=== PATIENT | female | born 1955 | race Native Hawaiian/Other Pacific Islander ===

== ENCOUNTER → 2016-09-03 | Outpatient (CLI) | payer BC ==
--- NOTE | 2016-09-03 22:29 | MR ---
EXAMINATION TYPE: MR brain wo/w con DATE OF EXAM: 09/03/2016 5:02 PM COMPARISON: Correlation CT 08/08/2015 HISTORY: 61-year-old female with chronic left hemifacial spasm TECHNIQUE: Multiplanar, multisequence images of the brain and brainstem were acquired before and aft er administration of 12 mL IV MultiHance. Diffusion weighted imaging is performed. FINDINGS: No evidence for acute infarction, hemorrhage, mass, mass effect, midline shift, herniation, effacemen t of basal cisterns, or extra-axial fluid collection. The ventricles and sulci are age-appropriate. There is mild cerebral cortical volume loss. Major intracranial flow voids are intact. T2/FLAIR weighted sequences show a few bright white matter foci in the subcortical, deep, and periven tricular white matter of both cerebral hemispheres, numbering approximately 5, largest focus measurin g 6 mm in the subcortical region of the posterior right frontal lobe, axial image 21. Midline structures demonstrate normal morphology. The craniocervical junction is normal. Post contrast images demonstrate no evidence of pathologic enhancement. Dural venous sinuses are pat ent. Trace mucosal thickening anterior ethmoid air cells. Globes are intact. IMPRESSION: 1. No acute intracranial abnormality seen. No abnormal enhancing lesions. 2. Minimal burden of bright white matter change, nonspecific, most likely representing changes of chr onic small vessel ischemic disease.
== END | disposition home or self-care (01) ==
LOC: RADMRIMAIN 15:35
PROVIDERS: ATTEND Psychiatry & Neurology Neurology
DX: R90.82 White matter disease, unspecified (principal); G51.3 Clonic hemifacial spasm
CPT/HCPCS: 82565; 70553; A9577

== ENCOUNTER → 2016-09-23 | Outpatient (CLI) | payer BC ==
[2016-09-23 16:39] LABS: CH 32.6; CHCM 34.4; HCT 40.1 % (34.0-46.0); HDW 2.64; HGB 13.6 gm/dL (11.4-16.0); MCH 32.4 pg (25.0-35.0); MCV 95.1 fL (80.0-100.0); Mean Platelet Volume 6.9; RBC 4.21 m/uL (3.80-5.40); RDW 12.8 % (11.5-15.5); WBC 6.7 k/uL (3.8-10.6)
[2016-09-23 16:55] LABS: Anion Gap 11 mmol/L; Blood Urea Nitrogen 17 mg/dL (7-17); Calcium 9.5 mg/dL (8.4-10.2); Carbon Dioxide 26 mmol/L (22-30); Chloride 103 mmol/L (98-107); Glucose 94 mg/dL (74-99); Non-African American GFR(MDRD) >60 (>60 ml/min/1.73 sqM); Potassium 4.1 mmol/L (3.5-5.1); Sodium 140 mmol/L (137-145)
== END ==
LOC: LABWHC1 16:16
PROVIDERS: ATTEND Psychiatry & Neurology Neurology
DX: Z51.81 Encounter for therapeutic drug level monitoring (principal); Z79.899 Other long term (current) drug therapy
CPT/HCPCS: 36415; 80048; 85027

== ENCOUNTER → 2018-01-14 | Outpatient (CLI) | payer BC | LOC: LABWHC1 15:26 | PROVIDERS: ATTEND Family Medicine | DX: E21.3 Hyperparathyroidism, unspecified (principal) | CPT/HCPCS: 36415; 83970 ==

== ENCOUNTER → 2018-06-04 | Outpatient (CLI) | payer BC ==
[~2018-06-04] MED LIST: SODIUM CHLORIDE 0.9% 500 ML 500 ML in EMPTY BAG 1 BAG IV PRN; ZOLEDRONIC ACID 5 MG in SODIUM CHLORIDE 0.9% 100 ML IV NR
[2018-06-04 14:18] VITALS: BP 137/66; PULSE 70; RESP 16; TEMP 97.8
== END ==
LOC: PROCWHC3 13:33
PROVIDERS: ATTEND Internal Medicine
DX: M81.0 Age-related osteoporosis without current pathological fracture (principal)
CPT/HCPCS: 96365; J3489

== ENCOUNTER → 2018-06-18 | Outpatient (CLI) | payer BC ==
[2018-06-18 17:57] LABS: LDL Cholesterol,Calculated 122.8 mg/dL (0.0-131.0); VLDL Calculation 18.2 mg/dL (5.00-40.00)
== END ==
LOC: LABWHC1 10:22
PROVIDERS: ATTEND Internal Medicine Interventional Cardiology
DX: E78.2 Mixed hyperlipidemia (principal)
CPT/HCPCS: 36415; 80061; 84450; 84460

== ENCOUNTER → 2018-06-18 | Outpatient (CLI) | payer BC ==
--- NOTE | 2018-06-22 08:40 | MM ---
Reason for exam: screening (asymptomatic). Last mammogram was performed 3 years and 6 months ago. History: Patient is postmenopausal. Family history of breast cancer in maternal aunt. Physical Findings: A clinical breast exam by your physician is recommended on an annual basis and results should be correlated with mammographic findings. MG 3D Screening Mammo W/Cad Bilateral CC and MLO view(s) were taken. Prior study comparison: December 05, 2014, bilateral MG screening mammo w CAD. December 10, 2011, CAD bilateral diagnostic mammogram. Focal asymmetry left middle CC view. This finding is changed when compared with previous exams. ASSESSMENT: Incomplete: need additional imaging evaluation, BI-RAD 0 RECOMMENDATION: Special view mammogram of the left breast. If lesion persists on supplemental views, image directed ultrasound is recommended. [facility] will attempt to contact patient to return for supplemental views and ultrasound if indicated.
== END ==
LOC: RADMAMWWP 10:25
PROVIDERS: ATTEND Family Medicine
DX: Z12.31 Encounter for screening mammogram for malignant neoplasm of breast (principal)
CPT/HCPCS: 77063; 77067

== ENCOUNTER → 2018-07-08 | Outpatient (CLI) | payer BC ==
--- NOTE | 2018-07-08 11:48 | MM ---
Reason for exam: additional evaluation requested from abnormal screening. Last mammogram was performed 1 month ago. History: Patient is postmenopausal. Family history of breast cancer in maternal aunt. Physical Findings: Nurse Summary: yellow bruise, patient states fell 2 weeks ago, 1.5cm palpable lump center of bruise upper outer chest (nurse mj). MG 3D Work Up W/Cad LT Spot compression CC and ML view(s) were taken of the left breast. Prior study comparison: June 18, 2018, bilateral MG 3d screening mammo w/cad. December 05, 2014, bilateral MG screening mammo w CAD. The breast tissue is heterogeneously dense. This may lower the sensitivity of mammography. There is a left upper outer quadrant mass 4cm from nipple that persists on additional views. Ultrasound will be performed. These results were verbally communicated with the patient and result sheet given to the patient on 07/08/18. ASSESSMENT: Incomplete: need additional imaging evaluation, BI-RAD 0 RECOMMENDATION: Ultrasound of the left breast. (upper outer quadrant)
--- NOTE | 2018-07-08 11:51 | USB ---
Reason for exam: additional evaluation requested from abnormal screening. History: Patient is postmenopausal. Family history of breast cancer in maternal aunt. US Breast Workup Limited LT Left limited breast ultrasound including focal area of concern, retroareolar and axilla demonstrates a 3.2 x 0.8 x 3.7cm oval, mixed lesion at 12 o'clock appears as hematoma, short term re-assessment recommended to ensure resolution and a 0.4 x 0.3 x 0.4cm oval, hypoechoic lesion at 2 o'clock although some increase through transmission, well defined posterior wall and nearby anechoic, this will be re-assessed in 3 months. These results were verbally communicated with the patient and result sheet given to the patient on 07/08/18. ASSESSMENT: Probably benign, BI-RAD 3 RECOMMENDATION: Ultrasound of the left breast in 3 months.
== END | disposition home or self-care (01) ==
LOC: RADMAMWWP 10:22
PROVIDERS: ATTEND Family Medicine
DX: R92.8 Other abnormal and inconclusive findings on diagnostic imaging of breast (principal)
CPT/HCPCS: 77061; 77065

== ENCOUNTER → 2019-04-08 | Outpatient (CLI) | payer BC ==
--- NOTE | 2019-04-11 08:41 | USB ---
Reason for exam: clinical finding. History: Patient is postmenopausal. Family history of breast cancer in maternal aunt. Indicated problem(s): pain in the left breast. Physical Findings: Nurse did not find any significant physical abnormalities on exam. US Breast LT Left complete breast ultrasound includes all four quadrants, the retroareolar region and axilla. Finding demonstrates no cystic or solid lesion seen. A 7mm and 6mm oval, lymph nodes at the axilla tail. Resolved hematoma. These results were verbally communicated with the patient and result sheet given to the patient on 04/08/19. ASSESSMENT: Negative, BI-RAD 1 RECOMMENDATION: Return to routine screening mammogram schedule for both breasts. Back on schedule for June 2019.
== END | disposition home or self-care (01) ==
LOC: RADUSWWP 14:31
PROVIDERS: ATTEND Family Medicine
DX: R92.8 Other abnormal and inconclusive findings on diagnostic imaging of breast (principal)

== ENCOUNTER 2019-05-26 11:22 | Emergency (ER) | payer BC, OTHER ==
[2019-05-26 11:55] VITALS: TEMP 97.6
[2019-05-26] MEDS ORDERED: SODIUM CHLORIDE 0.9% 500 ML 500 ML IV ONE (14:42)
--- NOTE | 2019-05-26 15:00 | CT ---
EXAMINATION TYPE: CT brain gail moser DATE OF EXAM: 05/26/2019 COMPARISON: 08/08/2015 HISTORY: fall CT DLP: 1276.[address] of the brain was performed. The ventricles, basal cisterns and sulci overlying the cerebral convexities demonstrate mild enlargem ent. There is no evidence for intracranial hemorrhage or sulcal effacement. There is decreased attenuatio n about the periventricular white matter and deep white matter of both cerebral hemispheres, compatib le with chronic small vessel ischemia. No mass effects are seen. If symptoms persist consider MRI. Osseous calvarium is intact. IMPRESSION: 1. Age related atrophic and chronic small vessel ischemic change without acute intracranial process seen at this time. CT Cervical Spine: Unenhanced CT of the cervical spine was performed with bone and soft tissue window settings submitted . Coronal and sagittal reconstruction is obtained. There is normal alignment and prevertebral soft tissues. No evidence for acute cervical fracture . Scattered degenerative disc disease and spondylosis. Biapical scarring. IMPRESSION: 1. No evidence for acute fracture or subluxation of the cervical spine.
--- NOTE | 2019-05-26 15:06 | CT ---
EXAMINATION TYPE: CT abdomen pelvis w con DATE OF EXAM: 05/26/2019 COMPARISON: none HISTORY: Right flank pain post fall. CT DLP: 798.3 mGycm CONTRAST: CT scan of the abdomen and pelvis is performed without Oral Contrast and with IV Contrast, patient in jected with 100 mL of Isovue 300. FINDINGS: LUNG BASES-: No visible nodule. No infiltrate. LIVER/GB: No calcified gallstones. No space occupying hepatic lesion. Biliary tree is of normal ca liber. PANCREAS: No inflammation. No distinct mass. SPLEEN: No splenic enlargement. No lesion seen. ADRENALS: No nodule. No thickening. KIDNEYS/BLADDER: No hydronephrosis. No nephrolithiasis. No distinct renal mass. Urinary bladder g rossly unremarkable. BOWEL: Normal appendix. Normal bowel caliber. No inflammation. GENITAL ORGANS: No gross abnormality. LYMPH NODES: No greater than 1cm abdominal or pelvic lymph nodes are appreciated. AORTA: No significant abnormality. OSSEOUS STRUCTURES: No significant abnormality is seen. OTHER: No significant additional abnormality is seen. IMPRESSION: 1. No acute process identified at this time.
[2019-05-26 15:20] LABS: Basophils % (A) 0 %; Eosinophils # (A) 0.2 k/uL (0-0.7); Eosinophils % (A) 3 %; HCT 37.8 % (34.0-46.0); HGB 12.6 gm/dL (11.4-16.0); Lymphocytes # (A) 1.7 k/uL (1.0-4.8); Lymphocytes % (A) 29 %; MCH 32.8 pg (25.0-35.0); MCHC 33.4 g/dL (31.0-37.0); MCV 98.3 fL (80.0-100.0); Mean Platelet Volume 6.9; Monocytes # (A) 0.3 k/uL (0-1.0); Monocytes % (A) 4 %; Neutrophils # (A) 3.6 k/uL (1.3-7.7); Neutrophils % (A) 61 %; Platelet Count 200 k/uL (150-450); RBC 3.85 m/uL (3.80-5.40); RDW 12.9 % (11.5-15.5); WBC 5.9 k/uL (3.8-10.6)
[2019-05-26 15:30] LABS: ALT 21 U/L (4-34); AST 33 U/L (14-36); African American GFR (CKD) >90 (>60 ml/min/1.73 sqM); Albumin 4.1 g/dL (3.5-5.0); Alkaline Phosphatase 89 U/L (38-126); Anion Gap 5 mmol/L; Blood Urea Nitrogen 14 mg/dL (7-17); Calcium 8.8 mg/dL (8.4-10.2); Carbon Dioxide 27 mmol/L (22-30); Chloride 106 mmol/L (98-107); Glucose 84 mg/dL (74-99); Non-African American GFR(CKD) >90 (>60 ml/min/1.73 sqM); Sodium 138 mmol/L (137-145); Total Bilirubin 0.7 mg/dL (0.2-1.3); Total Protein 7.1 g/dL (6.3-8.2)
--- NOTE | 2019-05-26 15:37 | XR ---
EXAMINATION TYPE: XR chest 2V DATE OF EXAM: 05/26/2019 COMPARISON: NONE HISTORY: Shortness of breath TECHNIQUE: Frontal and lateral views of the chest are obtained. FINDINGS: Scattered senescent parenchymal changes noted. Hyperinflation compatible with COPD. No evidence for infiltrate. No evidence for atelectasis. Heart size is stable. Mediastinal structures are stable and grossly unremarkable. No evidence for hilar prominence. Degenerative changes dorsal spine. IMPRESSION: 1. No evidence for acute pulmonary disease.
--- NOTE | 2019-05-26 15:38 | XR ---
EXAMINATION TYPE: XR shoulder complete RT DATE OF EXAM: 05/26/2019 CLINICAL HISTORY: pain TECHNIQUE: Three views of the right shoulder are obtained. COMPARISON: None FINDINGS: There is no acute fracture/dislocation evident. The acromioclavicular and glenohumeral maribell int spaces appear within normal limits. The visualized ribs are intact and unremarkable. IMPRESSION: 1. There is no acute fracture or dislocation. ICD 10 NO FRACTURE, INITIAL EVALUATION
--- NOTE | 2019-05-26 15:38 | XR ---
EXAMINATION TYPE: XR Hip Complete RT DATE OF EXAM: 05/26/2019 CLINICAL HISTORY: pain TECHNIQUE: AP and frogleg views of the right hip are obtained. COMPARISON: None. FINDINGS: There is no acute fracture/dislocation evident. The joint space appears within normal li mits. Calcification adjacent to the greater trochanter may reflect calcific tendinopathy. IMPRESSION: 1. There is no acute fracture or dislocation. ICD 10 NO FRACTURE, INITIAL EVALUATION
--- NOTE | 2019-05-26 15:53 | ED ---
Fall HPI - General Chief Complaint: Fall Stated Complaint: [facility] - fall, head injury Time Seen by Provider: 05/26/19 12:47 Source: patient Mode of arrival: ambulatory - History of Present Illness Initial Comments: 64-year-old female withPast medical history presenting today for chief complaint of right shoulder right hip and flank pain after fall down 10 steps. Patient states she lost her balance falling on her right side down approximately 10 steps she states she slid. Patient states she did hit her head but states pulsatile most of the right shoulder. Patient states she has slight right-sided neck pain. Patient denies any headache nausea vomiting visual changes dizzine ss. Patient has a chest pain shortness of breath or pain with deep inspiration. Patient states that she is able to ambulate and weight-bear denies any knee or ankle pain. Patient denies any use of anticoagulation therapy and denies any loss of consciousness. Patient denies any weakness of the upper or lower extremities obvious deformity of the shoulder numbness tingling loss sensation of the upper or lower extremities, speech changes or diplopia or any other complaints at this time. Patient states that the fall initially occurred at 10 AM however she did not start to feel pain until hours later and then decided to present to the emergency department for further evaluation. Patient states the fall did occur at work. - Related Data Home Medications Medication Instructions Recorded Confirmed Calcium Carbonate [Calcium] 600 mg PO DAILY 06/04/18 06/04/18 Ergocalciferol (Vitamin D2) 50,000 unit PO WEEKLY 06/04/18 06/04/18 [Vitamin D2] Allergies Allergy/AdvReac Type Severity Reaction Status Date / Time No Known Allergies Allergy Verified 06/04/18 14:12 Review of Systems ROS Statement: Those systems with pertinent positive or pertinent negative responses have been documented in the HPI. ROS Other: All systems not noted in ROS Statement are negative. Past Medical History Past Medical History: No Reported History History of Any Multi-Drug Resistant Organisms: None Reported Past Surgical History: Section Past Psychological History: No Psychological Hx Reported Smoking Status: Former smoker General Exam - General Exam Comments Initial Comments: General: The patient is awake and alert, in no distress, and does not appear acutely ill. Eye: upils are equal, round and reactive to light, extra-ocular movements are intact. No nystagmus. There is normal conjunctiva bilaterally. No signs of icterus. Ears, nose, mouth and throat: There are moist mucous membranes and no oral lesions. Neck: The neck is supple, there is no tenderness or JVD. Cardiovascular: There is a regular rate and rhythm. No murmur, rub or gallop is appreciated. Respiratory: Lungs are clear to auscultation, respirations are non-labored, breath sounds are equal. No wheezes, stridor, rales, or rhonchi. Gastrointestinal: Soft, non-distended, non-tender abdomen without masses or organomegaly noted. There is no rebound or guarding present Musculoskeletal: Upon inspection of the upper extremities there is contusion of the right anterior shoulder. No gross deformity. Patient is able to fully range the shoulders bilaterally with complaints of mild tenderness of the right shoulder with overhead range of motion. Patient is no tenderness to patient and scapula. No point localized pain of the elbows wrists bilaterally or left shoulder. Patient has pain over the bony prominence of the right hip no evidence of bruising lacerations or abrasions. Normal ROM of the hips b/l there is no shortening, rotation or pain with log roll. Strength 5/5 of the UE and LE b/l. No evidence of a strep patient is able to make the okay fingers crossed thumbs-up and oppose all digits and thumb compartment circumflex soft and compressible of the upper and lower extremity. Sensation intact fo the UE and LE b/l. Radial and DP Pulses equal bilaterally 2+. Neurological: A&O x 3. CN II-XII intact, There are no obvious motor or sensory deficits. Coordination appears grossly intact. Speech is normal. Skin: Skin is warm and dry and no rashes or lesions are noted. Psychiatric: Cooperative, appropriate mood & affect, normal judgment. Limitations: no limitations Course Vital Signs 05/26/19 05/26/19 11:52 16:54 Temperature 97.6 F Pulse Rate 81 79 Respiratory 20 16 Rate Blood Pressure 134/85 130/66 O2 Sat by Pulse 98 99 Oximetry Medical Decision Making - Medical Decision Making Imaging studies negative for acute osseous process. No signs of intracranial hemorrhage patient does not have any midline pain or pain with range of motion of the cervical spine once the collar was removed. Patient mild right-sided paravertebral tenderness with palpation. Patient is able to weight-bear on the right hip. No difficulty. No limitations in range of motion of the right shoulder no scapular pain patient is neurovascularly intact. Patient does not use antiquated radiation therapy she appears well with complaints of generalized soreness there is no evidence of intra-abdominal process nor pneumothorax. At this time I do feel patient is stable for discharge with outpatient primary care follow-up patient is agreeable to this care plan and was discharged with a starter pack for 10 #3 proper use was discussed I discussed the case with any provider Dr. Jacobsen who was agreeable to are plan and discharge. - Lab Data Result diagrams: 05/26/19 15:09 05/26/19 15:09 Lab Results 05/26/19 05/26/19 Range/Units 15:09 15:09 WBC 5.9 (3.8-10.6) k/uL RBC 3.85 (3.80-5.40) m/uL Hgb 12.6 (11.4-16.0) gm/dL Hct 37.8 (34.0-46.0) % MCV 98.3 (80.0-100.0) fL MCH 32.8 (25.0-35.0) pg MCHC 33.4 (31.0-37.0) g/dL RDW 12.9 (11.5-15.5) % Plt Count 200 (150-450) k/uL Neutrophils % 61 % Lymphocytes % 29 % Monocytes % 4 % Eosinophils % 3 % Basophils % 0 % Neutrophils # 3.6 (1.3-7.7) k/uL Lymphocytes # 1.7 (1.0-4.8) k/uL Monocytes # 0.3 (0-1.0) k/uL Eosinophils # 0.2 (0-0.7) k/uL Basophils # 0.0 (0-0.2) k/uL Sodium 138 (137-145) mmol/L Potassium 4.0 (3.5-5.1) mmol/L Chloride 106 (98-107) mmol/L Carbon Dioxide 27 (22-30) mmol/L Anion Gap 5 mmol/L BUN 14 (7-17) mg/dL Creatinine 0.59 (0.52-1.04) mg/dL Est GFR (CKD-EPI)AfAm >90 (>60 ml/min/1.73 sqM) Est GFR (CKD-EPI)NonAf >90 (>60 ml/min/1.73 sqM) Glucose 84 (74-99) mg/dL Calcium 8.8 (8.4-10.2) mg/dL Total Bilirubin 0.7 (0.2-1.3) mg/dL AST 33 (14-36) U/L ALT 21 (4-34) U/L Alkaline Phosphatase 89 (38-126) U/L Total Protein 7.1 (6.3-8.2) g/dL Albumin 4.1 (3.5-5.0) g/dL Disposition Clinical Impression: Fall, Right hip pain, Right shoulder pain, Head injury, Neck strain, Flank pain, Contusion Disposition: HOME SELF-CARE Condition: Good Instructions (If sedation given, give patient instructions): Fall Prevention for Older Adults (ED), R.I.C.E. Treatment (ED) Additional Instructions: Please use medication as discussed. Please follow-up with family doctor in the next 2 days. Please return to emergency room if the symptoms increase or worsen or for any other concerns. Is patient prescribed a controlled substance at d/c from ED?: No Referrals: Yuri Brown DO [Primary Care Provider] - 1-2 days Time of Disposition: 16:20
[2019-05-26] MEDS ORDERED: ACET/COD 300 MG/30 MG STARTER PACK 6 TAB BTL PO STA (16:28)
[2019-05-26 16:55] VITALS: BP 130/66; PULSE 79; RESP 16
== END 2019-05-26 16:56 | disposition home or self-care (01) ==
LOC: EC 11:22
DX: S16.1XXA Strain of muscle, fascia and tendon at neck level, initial encounter (principal); S40.011A Contusion of right shoulder, initial encounter; S09.90XA Unspecified injury of head, initial encounter; R10.9 Unspecified abdominal pain; M25.551 Pain in right hip; Z87.891 Personal history of nicotine dependence; W10.9XXA Fall (on) (from) unspecified stairs and steps, initial encounter; Y92.69 Other specified industrial and construction area as the place of occurrence of the external cause; Y99.0 Civilian activity done for income or pay
CPT/HCPCS: 99284; 36415; 80053; 85025; 73502; 73030; 71046; 72125; 70450; 74177; L0120; Q9967

== ENCOUNTER → 2021-01-10 | Outpatient (CLI) | payer MEDICARE ==
[2021-01-10 11:31] VITALS: BP 133/78; PULSE 92; RESP 16; TEMP 98.3
== END ==
LOC: PROCWHC3 11:21
PROVIDERS: ATTEND Internal Medicine
DX: M81.0 Age-related osteoporosis without current pathological fracture (principal); Z87.891 Personal history of nicotine dependence
CPT/HCPCS: 96365; J3489

== ENCOUNTER → 2021-01-22 | Outpatient (CLI) | payer MEDICARE ==
[2021-01-22 14:10] VITALS: BP 126/78; PULSE 80; RESP 12; TEMP 98.1
--- NOTE | 2021-01-22 15:20 | P.HPOB ---
History of Present Illness H&P Date: 01/22/21 Chief Complaint: The patient is here for her routine gynecologic exam. This is a 65-year-old 001 with an LMP of approximately 2010. It has been more than 7 years since her last pelvic exam. She states the last time she had a pelvic exam it was very uncomfortable and because of this she did not have another one for many years. She has not been sexually active for several years because of her 's erectile dysfunction. He has been treated for this without much success. When he is able to obtain a slight erection, they have not been able to maintain with sexual intercourse. There has been vaginal dryness when they had attempted sexual intercourse. She also finds that her sex drive is less than in the past. She states she is able to achieve orgasm with self-stimulation, but it is not as satisfying as orgasms in the past. She also states that in the last 2 weeks she has had occasional left vaginal wall discomfort. It reminds her of an occasional discomfort that she used to have with sexual intercourse if her partner was very large. This has only been occasional and not very bothersome and has occurred intermittently over the past 2 weeks. These pains have not been associated with sex since she has not been sexually active for several years and she states she has not put anything into the vagina. She denies any postmenopausal bleeding. She is otherwise without complaints. Review of Systems The patient's weight has been stable over the last year. She denies respiratory, cardiac, or G.I. problems. Past Medical History Past Medical History: Hyperlipidemia Additional Past Medical History / Comment(s): Osteoporosis. 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 History of Any Multi-Drug Resistant Organisms: None Reported Past Surgical History: Section Additional Past Surgical History / Comment(s): section 2. Colonoscopy approximately 2010. Past Anesthesia/Blood Transfusion Reactions: No Reported Reaction Past Psychological History: Anxiety Smoking Status: Former smoker Past Alcohol Use History: Occasional (One per month) Additional Past Alcohol Use History / Comment(s): She smoked socially in the past but quit in her 40s. Past Drug Use History: None Reported Additional History: She has been since 1995 and this is her second marriage. She works at the [employer]. Medications and Allergies Home Medications Medication Instructions Recorded Confirmed Type Calcium Carbonate [Calcium] 600 mg PO DAILY 06/04/18 01/22/21 History Ergocalciferol (Vitamin D2) 50,000 unit PO WEEKLY 06/04/18 01/22/21 History [Vitamin D2] ALPRAZolam [Xanax] 0.25 mg PO DAILY PRN 01/22/21 01/22/21 History Hydrochlorothiazide 12.5 mg PO DAILY 01/22/21 01/22/21 History [hydroCHLOROthiazide] Zoledronic Acid [Zometa] 01/22/21 History Allergies Allergy/AdvReac Type Severity Reaction Status Date / Time No Known Allergies Allergy Verified 01/10/21 11:26 Exam Vital Signs Temp Pulse Resp BP Pulse Ox 01/22/21 13:47 98.1 F 80 12 126/78 98 Intake and Output 01/21/21 01/22/21 01/22/21 22:59 06:59 14:59 Other: Weight 59.421 kg Height 5 feet 1 inch, weight 131 pounds, BMI 24.8. This is a well-developed well-nourished female who is alert and oriented times 3 in no acute distress. HEENT: Within normal limits. NECK: Supple without mass or thyromegaly. CHEST AND LUNGS: Clear to auscultation. HEART: Regular rate and rhythm. BREASTS: Are without mass or discharge. AXILLARY EXAM: Negative for adenopathy. BACK: Negative for CVA tenderness. ABDOMEN: Soft, nontender, without palpable masses. PELVIC EXAM: Normal external genitalia with mild to moderate atrophy. Cervix and vagina appear normal with mild to moderate atrophy. There is no unusual discharge. There is no evidence of prolapse. The uterus is midposition, nongravid size and nontender. There are no palpable adnexal masses or tenderness. RECTAL EXAM: Rectovaginal exam is negative for mass or tenderness and is negative for occult blood. EXTREMITIES: Nontender. IMPRESSION: 1. 65-year-old menopausal female with recent left vaginal wall discomfort with no significant physical findings on exam today. 2. Sexual dysfunction, in part related to her 's erectile dysfunction along with vaginal dryness secondary to atrophy and menopausal changes in libido. PLAN: 1. Pap smear was performed. She has not had regular screening in more than 7 years. We will continue Pap smears until she has had 10 years of adequate screening. 2. Self breast awareness was discussed with the patient. We have also discussed symptoms associated with inflammatory breast cancer. 3. Screening mammogram is due and the order slip was given to the patient for this. 4. We have had a long discussion regarding her sexual dysfunction. I am not going to be able to help her with her 's erectile dysfunction, but she states when he does obtain even a slight erection, they have not been able to have sexual intercourse. She would like to have a trial of estrogen vaginal cream to see if this is helpful. Estrace vaginal cream 1 mg into the vagina 2 times weekly. The electronic prescription will be sent to [facility] pharmacy. 5. Osteoporosis management was discussed. I have stressed the importance of adequate calcium, vitamin D and regular exercise. Recommended amounts of calcium and vitamin D were also discussed. She will continue to get Reclast infusions as prescribed by her PCP. I will also let her PCP manage bone density testing. 6. I have recommended screening colonoscopy or some type of colorectal cancer screening. She will see her PCP for this.\ 7. She was advised to return in one year for her annual well woman exam.
== END ==
LOC: WWCWWP 13:08
PROVIDERS: ATTEND Obstetrics & Gynecology
DX: Z01.419 Encounter for gynecological examination (general) (routine) without abnormal findings (principal); N89.8 Other specified noninflammatory disorders of vagina; E78.5 Hyperlipidemia, unspecified; F41.9 Anxiety disorder, unspecified; Z87.891 Personal history of nicotine dependence; Z87.39 Personal history of other diseases of the musculoskeletal system and connective tissue; Z78.0 Asymptomatic menopausal state

== ENCOUNTER 2021-11-19 08:09 | Day surgery (SDC) | payer MEDICARE ==
[2021-11-15 10:43] VITALS: BMI 25.7
[~2021-11-19 08:09] MED LIST changes: +LACTATED RINGERS 1,000 ML IV SCH; -SODIUM CHLORIDE 0.9% 500 ML 500 ML in EMPTY BAG 1 BAG IV PRN; -ZOLEDRONIC ACID 5 MG in SODIUM CHLORIDE 0.9% 100 ML IV NR
[2021-11-19 09:10] VITALS: TEMP 98
[2021-11-19] MEDS ORDERED: LIDOCAINE 1% (10MG/ML) FOR IV START INTRADERMA ONE (09:15)
[2021-11-19] MEDS ORDERED: PROPOFOL 10 MG/ML 20 ML VIAL IV ONE (09:34)
--- NOTE | 2021-11-19 09:38 | P.GSHP ---
History of Present Illness H&P Date: 11/19/21 Chief Complaint: Colon cancer screening 66 row female here today for colonoscopy. Last colonoscopy was many years ago. No bowel complaints. No family history of colon cancer. Past Medical History Past Medical History: Hyperlipidemia, Musculoskeletal Disorder, Thyroid Disorder Additional Past Medical History / Comment(s): Osteoporosis. History of Any Multi-Drug Resistant Organisms: None Reported Past Surgical History: Section Additional Past Surgical History / Comment(s): section X2. Colonoscopy. Past Anesthesia/Blood Transfusion Reactions: Previous Problems w/ Anesthesia, Motion Sickness Additional Past Anesthesia/Blood Transfusion Reaction / Comment(s): States "Needs more anesthesia." Past Psychological History: Anxiety, Depression Additional Psychological History / Comment(s): Hx depression, none now. Smoking Status: Former smoker Past Alcohol Use History: Occasional Additional Past Alcohol Use History / Comment(s): Smoked socially, quit in her 40s. Past Drug Use History: None Reported - Past Family History Brother(s) Family Medical History: Cancer Mother Family Medical History: Cancer Medications and Allergies Home Medications Medication Instructions Recorded Confirmed Type ALPRAZolam [Xanax] 0.25 mg PO DAILY PRN 01/22/21 11/15/21 History Allergies Allergy/AdvReac Type Severity Reaction Status Date / Time No Known Allergies Allergy Verified 11/19/21 09:01 Surgical - Exam Vital Signs Temp Pulse Resp BP Pulse Ox 98.0 F 79 16 155/81 95 11/19/21 09:09 11/19/21 09:09 11/19/21 09:09 11/19/21 09:09 11/19/21 09:09 Physical exam: General: Well-developed, well-nourished HEENT: Normocephalic, sclerae nonicteric Abdomen: Nontender, nondistended Extremities: No edema Neuro: Alert and oriented Assessment and Plan (1) Colon cancer screening Narrative/Plan: Will proceed with colonoscopy at this time. Current Visit: Yes Status: Acute Code(s): Z12.11 - ENCOUNTER FOR SCREENING FOR MALIGNANT NEOPLASM OF COLON SNOMED Code(s): 995618419
--- NOTE | 2021-11-19 09:51 | P.PCN ---
Date of Procedure: 11/19/21 Procedure(s) Performed: PREOPERATIVE DIAGNOSIS: Colon cancer screening POSTOPERATIVE DIAGNOSIS: Normal exam PROCEDURE: Colonoscopy ANESTHESIA: MAC SURGEON: John Butt M.D. SPECIMENS: None ENDOSCOPIC PROCEDURE: The patient was placed on the endoscopy table in the left decubitus position. The Olympus colonoscope was inserted into the anus and passed under direct visualization to the base of the cecum. The appendiceal orifice was visualized. From that point the scope was slowly withdrawn inspecti ng all surfaces carefully. There were no neoplastic inflammatory or polypoid lesions throughout the cecum, ascending, transverse, descending, sigmoid and rectum. There was no visible diverticulosis noted. Digital rectal examination was normal. The patient was taken to the recovery room in stable condition per anesthesia guidelines. RECOMMENDATIONS: Resume diet. Follow-up colonoscopy 10 years.
[2021-11-19 10:10] VITALS: RESP 16
[2021-11-19 10:22] VITALS: BP 130/84; PULSE 64
== END 2021-11-19 10:40 | disposition home or self-care (01) ==
LOC: ORWHC2ENDO 08:09
PROVIDERS: ATTEND Surgery
DX: Z12.11 Encounter for screening for malignant neoplasm of colon (principal); E78.5 Hyperlipidemia, unspecified; M81.0 Age-related osteoporosis without current pathological fracture; E07.9 Disorder of thyroid, unspecified; F41.9 Anxiety disorder, unspecified; F32.A Depression, unspecified; Z79.899 Other long term (current) drug therapy; Z87.891 Personal history of nicotine dependence; Z98.891 History of uterine scar from previous surgery; Z80.9 Family history of malignant neoplasm, unspecified
CPT/HCPCS: J2704; G0121

== ENCOUNTER 2022-10-09 09:46 | Emergency (ER) | payer BC, MEDICARE ==
[2022-10-09 09:57] VITALS: BP 150/88; PULSE 88; RESP 18; TEMP 98
--- NOTE | 2022-10-09 10:15 | ED ---
General Adult HPI - General Chief complaint: Skin/Abscess/Foreign Body Stated complaint: rt foot swelling Time Seen by Provider: 10/09/22 09:58 Source: patient, RN notes reviewed Mode of arrival: ambulatory Limitations: no limitations - History of Present Illness Initial comments: Patient is a pleasant 67-year-old female presenting to the emergency department with concerns with right foot swelling. Onset of symptoms was a close to week ago. Patient did have a metal door drop on her right foot however this was several weeks prior to this. Patient states the past couple of days she has had achiness in her joints and muscles diffusely. No fever. No upper respiratory symptoms. Patient does have some mild discomfort in her right foot as well. No redness. - Related Data Home Medications Medication Instructions Recorded Confirmed ALPRAZolam [Xanax] 0.25 mg PO DAILY PRN 01/22/21 11/15/21 Previous Rx's Medication Instructions Recorded Naproxen [EC-Naproxen] 375 mg PO BID #30 tab 10/09/22 Allergies Allergy/AdvReac Type Severity Reaction Status Date / Time No Known Allergies Allergy Verified 10/09/22 09:56 Review of Systems ROS Statement: Those systems with pertinent positive or pertinent negative responses have been documented in the HPI. ROS Other: All systems not noted in ROS Statement are negative. Constitutional: Denies: fever Eyes: Denies: eye pain ENT: Denies: ear pain Respiratory: Denies: cough, dyspnea Cardiovascular: Denies: chest pain Endocrine: Denies: fatigue Gastrointestinal: Denies: abdominal pain Genitourinary: Denies: urgency Musculoskeletal: Reports: as per HPI, joint swelling, arthralgia Skin: Denies: rash Neurological: Denies: weakness Past Medical History Past Medical History: Chest Pain / Angina, Hyperlipidemia, Musculoskeletal Disorder, Thyroid Disorder Additional Past Medical History / Comment(s): Osteoporosis. History of Any Multi-Drug Resistant Organisms: None Reported Past Surgical History: Section Additional Past Surgical History / Comment(s): section X2. Colonoscopy. Past Anesthesia/Blood Transfusion Reactions: Previous Problems w/ Anesthesia, Motion Sickness Additional Past Anesthesia/Blood Transfusion Reaction / Comment(s): States "Needs more anesthesia." Past Psychological History: Anxiety, Depression Smoking Status: Former smoker Past Alcohol Use History: Occasional Past Drug Use History: None Reported - Past Family History Brother(s) Family Medical History: Cancer Mother Family Medical History: Cancer General Exam Limitations: no limitations General appearance: alert, in no apparent distress Head exam: Present: atraumatic Eye exam: Present: normal appearance Neck exam: Present: normal inspection Respiratory exam: Present: normal lung sounds bilaterally Cardiovascular Exam: Present: regular rate, normal rhythm Expanded Peripheral pulses: 2+: Posterior Tibialis (R), Dorsalis Pedis (R) GI/Abdominal exam: Present: soft. Absent: tenderness Extremities exam: Present: other (Right dorsal mid to proximal foot with moderate swelling and minimal tenderness. No erythema or warmth. Otherwise joints without tenderness or swelling or warmth or erythema.). Absent: calf tenderness Neurological exam: Present: alert. Absent: motor sensory deficit Psychiatric exam: Present: normal affect, normal mood Skin exam: Present: normal color. Absent: erythema Course Vital Signs 10/09/22 09:51 Temperature 98 F Pulse Rate 88 Respiratory 18 Rate Blood Pressure 150/88 O2 Sat by Pulse 98 Oximetry Medical Decision Making - Medical Decision Making Was pt. sent in by a medical professional or institution (LEONOR Maradiaga, ASSURANCE ANALYST, urgent care, hospital, or residential...) When possible be specific @ -No Did you speak to anyone other than the patient for history (EMS, parent, family, police, friend...)? What history was obtained from this source @ -No Did you review nursing and triage notes (agree or disagree)? Why? @ -I reviewed and agree with nursing and triage notes Were old charts reviewed (outside hosp., previous admission, EMS record, old E KG, old radiological studies, urgent care reports/EKG's, residential records)? Report findings @ -No old charts were reviewed Differential Diagnosis (chest pain, altered mental status, abdominal pain women, abdominal pain men, vaginal bleeding, weakness, fever, dyspnea, syncope, headache, dizziness, GI bleed, back pain, seizure, CVA, palpatations, mental hea lth)? @ -not applicable EKG interpreted by me (3pts min.). @ -As above X-rays interpreted by me (1pt min.). @ -X-ray shows right small toe with age indeterminate chip fracture CT interpreted by me (1pt min.). @ -None done U/S interpreted by me (1pt. min.). @ -Report reviewed What testing was considered but not performed or refused? (CT, X-rays, U/S, labs)? Why? @ -None What meds were considered but not given or refused? Why? @ -None Did you discuss the management of the patient with other professionals (professionals i.e. , PA, ASSURANCE ANALYST, lab, RT, psych nurse, aids social worker, housekeeping room attendant, teacher, hospital chief financial officer, case briefer)? Give summary @ -No Was smoking cessation discussed for >3mins.? @ -No Was critical care preformed (if so, how long)? @ -No Were there social determinants of health that impacted care today? How? (Homelessness, low income, unemployed, alcoholism, drug addiction, transportation, low edu. Level, literacy, decrease access to med. care, [place] [facility], rehab)? @ -No Was there de-escalation of care discussed even if they declined (Discuss DNR or withdrawal of care, Hospice)? DNR status @ -No What co-morbidities impacted this encounter? (DM, HTN, Smoking, COPD, CAD, Cancer, CVA, ARF, Chemo, Hep., AIDS, mental health diagnosis, sleep apnea, morbid obesity)? @ -None Was patient admitted / discharged? Hospital course, mention meds given and route, prescriptions, significant lab abnormalities, going to OR and other pertinent info. @ -Patient reevaluated and updated. There is concern for early onset rheumatological disease. Patient is made aware of this and need for follow-up. Patient will be covered with anti-inflammatories. Patient was offered steroids however refuses. Undiagnosed new problem with uncertain prognosis? @ -No Drug Therapy requiring intensive monitoring for toxicity (Heparin, Nitro, In sulin, Cardizem)? @ -No Were any procedures done? @ -No Diagnosis/symptom? @ -Polyarthralgia Acute, or Chronic, or Acute on Chronic? @ -Acute Uncomplicated (without systemic symptoms) or Complicated (systemic symptoms)? @ -default Side effects of treatment? @ -No Exacerbation, Progression, or Severe Exacerbation? @ -No Poses a threat to life or bodily function? How? (Chest pain, [place], [place], pneumonia, PE, COPD, DKA, ARF, appy, cholecystitis, CVA, Diverticulitis, Homicidal, Suicidal, threat to staff... and all critical care pts) @ -No - Lab Data Result diagrams: 10/09/22 10:36 10/09/22 10:36 Lab Results 10/09/22 10/09/22 Range/Units 10:36 10:36 WBC 5.8 (3.8-10.6) k/uL RBC 3.53 L (3.80-5.40) m/uL Hgb 12.5 (11.4-16.0) gm/dL Hct 36.4 (34.0-46.0) % MCV 102.9 H (80.0-100.0) fL MCH 35.3 H (25.0-35.0) pg MCHC 34.4 (31.0-37.0) g/dL RDW 15.3 (11.5-15.5) % Plt Count 250 (150-450) k/uL MPV 6.8 Neutrophils % 69 % Lymphocytes % 22 % Monocytes % 4 % Eosinophils % 3 % Basophils % 0 % Neutrophils # 4.1 (1.3-7.7) k/uL Lymphocytes # 1.3 (1.0-4.8) k/uL Monocytes # 0.3 (0-1.0) k/uL Eosinophils # 0.2 (0-0.7) k/uL Basophils # 0.0 (0-0.2) k/uL Macrocytosis Slight Sodium 139 (137-145) mmol/L Potassium 3.7 (3.5-5.1) mmol/L Chloride 105 (98-107) mmol/L Carbon Dioxide 29 (22-30) mmol/L Anion Gap 5 mmol/L BUN 13 (7-17) mg/dL Creatinine 0.56 (0.52-1.04) mg/dL Est GFR (CKD-EPI)AfAm >90 (>60 ml/min/1.73 sqM) Est GFR (CKD-EPI)NonAf >90 (>60 ml/min/1.73 sqM) Glucose 126 H (74-99) mg/dL Calcium 8.5 (8.4-10.2) mg/dL Total Bilirubin 0.8 (0.2-1.3) mg/dL AST 29 (14-36) U/L ALT 20 (4-34) U/L Alkaline Phosphatase 78 (38-126) U/L Creatine Kinase 85 (30-135) U/L C-Reactive Protein 2.6 H (<1.0) mg/dL Total Protein 7.3 (6.3-8.2) g/dL Albumin 4.2 (3.5-5.0) g/dL Disposition Clinical Impression: Polyarthralgia Disposition: HOME SELF-CARE Condition: Stable Instructions (If sedation given, give patient instructions): Arthralgia (ED) Additional Instructions: Please do follow-up with your primary care physician in the next day or 2 for recheck. Prescription sent to pharmacy. Please discuss with your primary care physician regarding possible rheumatology referral. Return for increased pain, swelling, fevers, weakness, worsening or changing symptoms or other concerns. Prescriptions: Naproxen [EC-Naproxen] 375 mg PO BID #30 tab Is patient prescribed a controlled substance at d/c from ED?: No Referrals: Yuri Brown DO [Primary Care Provider] - 1-2 days Time of Disposition: 12:14
--- NOTE | 2022-10-09 10:38 | XR ---
EXAMINATION TYPE: XR foot complete RT DATE OF EXAM: 10/09/2022 COMPARISON: NONE HISTORY: Pain TECHNIQUE: Frontal, lateral and oblique images of the right foot are obtained. FINDINGS: Age-indeterminate avulsion fracture involving the distal lateral aspect of the fifth proxim al phalanx. No surrounding soft tissue swelling. The joint spaces appear within normal limits. No r adiopaque foreign bodies. IMPRESSION: Age-indeterminate avulsion fracture involving the distal lateral aspect of the fifth proximal phalanx . Correlate with point tenderness.
[2022-10-09 10:54] LABS: Basophils % (A) 0 %; Eosinophils # (A) 0.2 k/uL (0-0.7); Eosinophils % (A) 3 %; HCT 36.4 % (34.0-46.0); HGB 12.5 gm/dL (11.4-16.0); Lymphocytes # (A) 1.3 k/uL (1.0-4.8); Lymphocytes % (A) 22 %; MCH 35.3 pg (25.0-35.0); MCHC 34.4 g/dL (31.0-37.0); MCV 102.9 fL (80.0-100.0); Macrocytosis Slight; Mean Platelet Volume 6.8; Monocytes # (A) 0.3 k/uL (0-1.0); Monocytes % (A) 4 %; Neutrophils # (A) 4.1 k/uL (1.3-7.7); Neutrophils % (A) 69 %; Platelet Count 250 k/uL (150-450); RBC 3.53 m/uL (3.80-5.40); RDW 15.3 % (11.5-15.5); WBC 5.8 k/uL (3.8-10.6)
[2022-10-09 11:02] LABS: ALT 20 U/L (4-34); AST 29 U/L (14-36); African American GFR (CKD) >90 (>60 ml/min/1.73 sqM); Albumin 4.2 g/dL (3.5-5.0); Alkaline Phosphatase 78 U/L (38-126); Anion Gap 5 mmol/L; Blood Urea Nitrogen 13 mg/dL (7-17); Calcium 8.5 mg/dL (8.4-10.2); Carbon Dioxide 29 mmol/L (22-30); Chloride 105 mmol/L (98-107); Creatine Kinase 85 U/L (30-135); Glucose 126 mg/dL (74-99); Non-African American GFR(CKD) >90 (>60 ml/min/1.73 sqM); Potassium 3.7 mmol/L (3.5-5.1); Sodium 139 mmol/L (137-145); Total Bilirubin 0.8 mg/dL (0.2-1.3); Total Protein 7.3 g/dL (6.3-8.2)
--- NOTE | 2022-10-09 11:27 | US ---
EXAMINATION TYPE: US venous doppler duplex LE RT DATE OF EXAM: 10/09/2022 11:11 AM COMPARISON: NONE CLINICAL INDICATION: Female, 67 years old with history of swelling; Pain right leg. Edema right foot SIDE PERFORMED: right TECHNIQUE: The lower extremity deep venous system is examined utilizing real time linear array sonog phi with graded compression, doppler sonography and color-flow sonography. VESSELS IMAGED: Common Femoral Vein Deep Femoral Vein Greater Saphenous Vein * Femoral Vein Popliteal Vein Small Saphenous Vein * Proximal Calf Veins (* superficial vessels) Grayscale, color doppler, spectral doppler imaging performed of the deep veins of the right lower ext remity. There is normal flow, compressibility, vascular waveforms. Right Leg: No evidence of DVT IMPRESSION: No ultrasound evidence for deep venous thrombosis of the right lower extremity.
[2022-10-09 11:49] LABS: C Reactive Protein 2.6 mg/dL (<1.0)
[2022-10-09 15:53] LABS: Rheumatoid Factor, Qnt <15 IU/mL (0-15)
== END 2022-10-09 12:00 | disposition home or self-care (01) ==
LOC: EC 09:46
DX: M25.571 Pain in right ankle and joints of right foot (principal); M81.0 Age-related osteoporosis without current pathological fracture; Z86.59 Personal history of other mental and behavioral disorders; Z87.891 Personal history of nicotine dependence
CPT/HCPCS: 36415; 80053; 82550; 85025; 86140; 86431; 99284

== ENCOUNTER → 2022-10-30 | Outpatient (CLI) | payer MEDICARE ==
--- NOTE | 2022-10-30 15:02 | BD ---
EXAMINATION TYPE: Axial Bone Density DATE OF EXAM: 10/30/2022 CLINICAL HISTORY: 67 years old Female. ICD-10 CODE: M81.0 OSTEOPOROSIS Height: 60 Weight: 124.7 FRAX RISK QUESTIONS: Alcohol (3 or more units per day): no Family History (Parent hip fracture): no Glucocorticoids (More than 3mos): no (Ex: prednisone, prednisolone, methylprednisolone, dexamethasone, and hydrocortisone). History of Fracture in Adulthood: no Secondary Osteoporosis: 1. Type 1 Diabetes: no 2. Hyperthyroidism: no 3. Menopause before 45: no 4. Malnutrition: no 5. Chronic liver disease: no Rheumatoid Arthritis: no Current Tobacco Use: no RISK FACTORS HISTORY OF: Surgery to Spine/Hip(right/left)/Wrist (right/left): no Family History of Osteoporosis: no Active: yes Diet low in dairy products/other sources of calcium: yes Postmenopausal woman: yes Lost more than 2 inches in height since high school: no Additional History: EXAM MEASUREMENTS: Bone mineral densitometry was performed using the [employer] System. Bone mineral density as measured about the Lumbar spine is: ----- L1-L4(G/cm2): 0.832 T Score Values are as follows: ----- L1: -2.1 ----- L2: -3.1 ----- L3: -2.7 ----- L4: -3.5 ----- L1-L4: -2.9 Z Score Values are as follows: ----- L1: -0.2 ----- L2: -1.2 ----- L3: -0.7 ----- L4: -1.6 ----- L1-L4: -1.0 Bone mineral density has: increased 5.2 % since study of: 11.29.2015 Bone mineral density about the R hip (g/cm2): 0.912 Bone mineral density about the L hip (g/cm2): .0870 T Score values are as follows: -----R Neck: -1.1 -----L Neck: -1.4 -----R Total: -0.8 -----L Total: -1.1 Z Score values are as follows: -----R Neck: 0.6 -----L Neck: 0.3 -----R Total: 0.8 -----L Total: 0.4 Bone mineral density has: increased 2.8 % since study of: 72016 FRAX%s: The graph provided illustrates a 9.2% chance for a major osteoporotic fx and a 1.1% chance fo r the hips probability for fx in 10 years time. IMPRESSION: Osteoporosis (T Score less than -2.5). There is increased fracture risk and therapy is usually indicated based on age. Re-Screen 1-2 years. NOTE: T-SCORE=SD OF THE YOUNG ADULT MEAN.
== END | disposition home or self-care (01) ==
LOC: RADBDWWP 13:07
PROVIDERS: ATTEND Family Medicine
DX: M81.0 Age-related osteoporosis without current pathological fracture (principal); M85.89 Other specified disorders of bone density and structure, multiple sites
CPT/HCPCS: 77080

== ENCOUNTER → 2022-12-17 | Outpatient (CLI) | payer MEDICARE ==
[~2022-12-17] MED LIST changes: -LACTATED RINGERS 1,000 ML IV SCH; +SODIUM CHLORIDE 0.9% 500 ML 500 ML in EMPTY BAG 1 BAG IV PRN; +ZOLEDRONIC ACID 5 MG in SODIUM CHLORIDE 0.9% 100 ML IV NR
[2022-12-17 14:04] VITALS: BP 146/75; PULSE 56; RESP 16; TEMP 98.1
== END ==
LOC: PROCWHC3 13:55
PROVIDERS: ATTEND Family Medicine
DX: M81.0 Age-related osteoporosis without current pathological fracture (principal)
CPT/HCPCS: 96365; J3489

== ENCOUNTER → 2023-07-03 | Outpatient (CLI) | payer MEDICARE ==
[2023-07-03 15:51] LABS: HCT 40.1 % (37.2-46.3); MCH 33.1 pg (27.0-32.0); MCHC 34.9 g/dL (32.0-37.0); MCV 94.8 FL (80.0-97.0); Mean Platelet Volume 9.8 FL (9.5-12.2); NRBC Per 100 WBC 0 X 10*3/uL (0.00-0.01); Platelet Count 219 X 10*3/uL (140-440); RBC 4.23 X 10*6/uL (4.10-5.20); RDW 12.3 % (11.5-14.5); WBC 5.62 X 10*3/uL (4.50-10.00)
[2023-07-03 16:19] LABS: ALT 17 U/L (8-44); AST 28 U/L (13-35); Albumin 4.8 g/dL (3.8-4.9); Alkaline Phosphatase 75 U/L (41-126); BUN/Creat Ratio 18.14 Ratio (12.00-20.00); Blood Urea Nitrogen 12.7 mg/dL (9.0-27.0); Calcium 9.8 mg/dL (8.7-10.3); Carbon Dioxide 26.8 mmol/L (21.6-31.8); Chloride 105 mmol/L (96-109); Chol/HDL Ratio 3.51 Ratio; Glucose 93 mg/dL (70-110); LDL Cholesterol,Calculated 143.3 mg/dL (0.0-131.0); Potassium 4.2 mmol/L (3.5-5.5); Sodium 142 mmol/L (135-145); Total Bilirubin 0.5 mg/dL (0.3-1.2); Total Protein 7.8 g/dL (6.2-8.2)
== END | disposition home or self-care (01) ==
LOC: LABWHC1 08:34
PROVIDERS: ATTEND Family Medicine
DX: Z00.00 Encounter for general adult medical examination without abnormal findings (principal); E78.00 Pure hypercholesterolemia, unspecified; M81.0 Age-related osteoporosis without current pathological fracture; R73.01 Impaired fasting glucose
CPT/HCPCS: 36415; 80053; 80061; 83036; 84443; 85027

== ENCOUNTER 2023-11-13 15:08 | Emergency (ER) | payer MEDICARE ==
[2023-11-13 15:13] VITALS: RESP 16; TEMP 98.1
--- NOTE | 2023-11-13 15:54 | ED ---
General Adult HPI - General Chief complaint: Abdominal Pain Stated complaint: abd pain Time Seen by Provider: 11/13/23 15:13 Source: patient Mode of arrival: ambulatory Limitations: no limitations - History of Present Illness Initial comments: Dictation was produced using [employer] dictation software. please excuse any grammatical, word or spelling errors. Chief Complaint: 68-year-old female with abdominal pain History of Present Illness: Patient 68-year-old female presents emergency department with 2 months of generalized abdominal pain. Patient states that she is been having poor oral intake. She states that she vomits every time she tries to eat. States that emesis occurs hours later. Denies any blood. She states that the emesis is tented green. Denies any fever. Patient's mother has stomach cancer The ROS documented in this emergency department record has been reviewed and confirmed by me. Those systems with pertinent positive or negative responses have been documented in the HPI. All other systems are other negative and/or n oncontributory. - Related Data Home Medications Medication Instructions Recorded Confirmed ALPRAZolam [Xanax] 0.25 mg PO DAILY PRN 01/22/21 12/17/22 Calcium Carbonate/Vitamin D3 1 tab PO DAILY 12/17/22 12/17/22 [Calcium 500 mg Chewable Tablet] Cholecalciferol [Vitamin D3 (125 1 tab PO DAILY 12/17/22 12/17/22 Mcg = 5000 Iu)] Allergies Allergy/AdvReac Type Severity Reaction Status Date / Time atorvastatin [From Lipitor] AdvReac Unknown Verified 12/17/22 14:07 Review of Systems ROS Statement: Those systems with pertinent positive or pertinent negative responses have been documented in the HPI. ROS Other: All systems not noted in ROS Statement are negative. Past Medical History Past Medical History: Chest Pain / Angina, Hyperlipidemia, Musculoskeletal Disorder, Thyroid Disorder Additional Past Medical History / Comment(s): Osteoporosis. History of Any Multi-Drug Resistant Organisms: None Reported Past Surgical History: Section Additional Past Surgical History / Comment(s): section X2. Colonoscopy. Past Anesthesia/Blood Transfusion Reactions: Previous Problems w/ Anesthesia, Motion Sickness Additional Past Anesthesia/Blood Transfusion Reaction / Comment(s): States "Needs more anesthesia." Past Psychological History: Anxiety, Depression Smoking Status: Never smoker - Past Family History Brother(s) Family Medical History: Cancer Mother Family Medical History: Cancer General Exam - General Exam Comments Initial Comments: PHYSICAL EXAM: General Impression: Alert and oriented x3, not in acute distress HEENT: Normocephalic atraumatic, extra-ocular movements intact, pupils equal and reactive to light bilaterally, mucous membranes moist. Cardiovascular: Heart regular rate and rhythm Chest: Able to complete full sentences, no retractions, no tachypnea Abdomen: abdomen soft, diffuse palpatory tenderness, negative Mohr sign, non- distended, no organomegaly Musculoskeletal: Pulses present and equal in all extremities, no peripheral edema Motor: no focal deficits noted Neurological: CN II-XII grossly intact, no focal motor or sensory deficits noted Skin: Intact with no visualized rashes Psych: Normal affect and mood Limitations: no limitations Course Vital Signs 11/13/23 15:11 Temperature 98.1 F Pulse Rate 92 Respiratory 16 Rate Blood Pressure 119/67 O2 Sat by Pulse 97 Oximetry - Reevaluation(s) Reevaluation #1: 11/13/23 17:[address] Butt including labs, HPI and imaging studies. Dr. Butt requested that patient be transferred to hospital and continues GI specialist. EKG Findings - EKG Comments: EKG Findings:: My EKG interpretation: Ventricular rate 69, sinus rhythm, left bundle branch block,. 172, QRS 130, QTc 475. No MO prolongation, no QTC prolongation, no ST or T-wave changes noted. No EKG for comparison. Overall, this EKG is nonspecific Medical Decision Making - Medical Decision Making Was pt. sent in by a medical professional or institution (, PA, AIRCRAFT INSTRUMENT MECHANIC, urgent care, hospital, or jail...) When possible be specific @ -No Did you speak to anyone other than the patient for history (EMS, parent, family, police, friend...)? What history was obtained from this source @ -Friend at the bedside states that patient has been vomiting Did you review nursing and triage notes (agree or disagree)? Why? @ -I reviewed and agree with nursing and triage notes Were old charts reviewed (outside hosp., previous admission, EMS record, old EKG, old radiological studies, urgent care reports/EKG's, jail records)? Report findings @ -No old charts were reviewed Differential Diagnosis (chest pain, altered mental status, abdominal pain women, abdominal pain men, vaginal bleeding, musculoskeletal, weakness, fever, dyspnea, syncope, headache, dizziness, GI bleed, back pain, seizure, CVA, palpatations, mental health)? @ -Differential Abdominal Pain Women: Appendicitis, Cholecystitis, diverticulosis, ischemic bowel, pancreatitis, hepatitis, UTI, gastroenteritis, AAA, incarcerated hernia, bowel obstruction, constipation, inflammatory bowel, hepatitis, peptic ulcer disease, splenic infarction, perforated viscus, vulvitis, ovarian torsion, PID, kidney stone, placenta abruption, this is not meant to be an all-inclusive list EKG interpreted by me (3pts min.). @ -See above X-rays interpreted by me (1pt min.). @ -None done CT interpreted by me (1pt min.). @ -CT scan of the abdomen pelvis shows extra intrahepatic biliary dilatation of unclear etiology U/S interpreted by me (1pt. min.). @ -None done What testing was considered but not performed or refused? (CT, X-rays, U/S, labs)? Why? @ -None What meds were considered but not given or refused? Why? @ -None Was smoking cessation discussed for >3mins.? @ -No Were there social determinants of health that impacted care today? How? (Homelessness, low income, unemployed, alcoholism, drug addiction, tra nsportation, low edu. Level, literacy, decrease access to med. care, [facility], rehab)? @ -No Was there de-escalation of care discussed even if they declined (Discuss DNR or withdrawal of care, Hospice)? DNR status @ -No What co-morbidities impacted this encounter? (DM, HTN, Smoking, COPD, CAD, Cancer, CVA, ARF, Chemo, Hep., AIDS, mental health diagnosis, sleep apnea, morbid obesity)? @ -None Was patient admitted / discharged? Hospital course, mention meds given and route, prescriptions, significant lab abnormalities, going to OR and other pertinent info. @ -60-year-old female presents emergency department with chief complaint of abdominal pain and vomiting. Vital signs upon arrival are within acceptable limits. Patient has palpatory abdominal tenderness laboratory evaluation obtained showing white blood cell count 11.7. Laboratory evaluation shows AST of 696, ALT of 723 alk phos of 473. CT scan shows intra and extrahepatic biliary dilatation of unclear etiology. Case discussed with general surgery requests transfer to [facility]. Case discussed with Dr. Zheng GI specialist at [facility] who is willing to accept transfer. Did you discuss the management of the patient with other professionals (professionals i.e. , PA, AIRCRAFT INSTRUMENT MECHANIC, lab, RT, psych nurse, social service director, statistician theoretical, teacher, conservation science officer, case managers)? Give summary @ -See above Was critical care preformed (if so, how long)? @ -No Undiagnosed new problem with uncertain prognosis? @ -No Drug Therapy requiring intensive monitoring for toxicity (Heparin, Nitro, Insulin, Cardizem)? @ -No Were any procedures done? @ -No Diagnosis/symptom? Acute, or Chronic, or Acute on Chronic? Uncomplicated (without systemic symptoms) or Complicated (systemic symptoms)? @ -Biliary obstruction, unclear cause Side effects of treatment? @ -No Exacerbation, Progression, or Severe Exacerbation? @ -No Poses a threat to life or bodily function? How? (Chest pain, [place], [place], pneumonia, PE, COPD, DKA, ARF, appy, cholecystitis, CVA, Diverticulitis, Homicidal, Suicidal, threat to staff... and all critical care pts) @ -yes - Lab Data Result diagrams: 11/13/23 15:56 11/13/23 15:56 Lab Results 11/13/23 11/13/23 Range/Units 15:56 15:56 WBC 11.7 H (3.8-10.6) k/uL RBC 4.46 (3.80-5.40) m/uL Hgb 14.5 (11.4-16.0) gm/dL Hct 44.2 (34.0-46.0) % MCV 99.1 (80.0-100.0) fL MCH 32.5 (25.0-35.0) pg MCHC 32.8 (31.0-37.0) g/dL RDW 12.8 (11.5-15.5) % Plt Count 183 (150-450) k/uL MPV 7.6 Neutrophils % 92 % Lymphocytes % 4 % Monocytes % 3 % Eosinophils % 0 % Basophils % 0 % Neutrophils # 10.8 H (1.3-7.7) k/uL Lymphocytes # 0.4 L (1.0-4.8) k/uL Monocytes # 0.4 (0-1.0) k/uL Eosinophils # 0.0 (0-0.7) k/uL Basophils # 0.0 (0-0.2) k/uL Sodium 140 (137-145) mmol/L Potassium 4.4 (3.5-5.1) mmol/L Chloride 109 H (98-107) mmol/L Carbon Dioxide 21 L (22-30) mmol/L Anion Gap 10 mmol/L BUN 12 (7-17) mg/dL Creatinine 0.55 (0.52-1.04) mg/dL Est GFR (CKD-EPI)AfAm >90 (>60 ml/min/1.73 sqM) Est GFR (CKD-EPI)NonAf >90 (>60 ml/min/1.73 sqM) Glucose 123 H (74-99) mg/dL Calcium 9.4 (8.4-10.2) mg/dL Total Bilirubin 5.5 H (0.2-1.3) mg/dL AST 696 H (14-36) U/L ALT 723 H (4-34) U/L Alkaline Phosphatase 473 H (38-126) U/L Total Protein 7.8 (6.3-8.2) g/dL Albumin 4.8 (3.5-5.0) g/dL Lipase 63 (23-300) U/L Disposition Clinical Impression: Biliary obstruction Disposition: OTHER INSTITUTION NOT DEFINED Condition: Serious Referrals: Julio Cesar Johns MD [Primary Care Provider] - 1-2 days Time of Disposition: 18:41 - Out of Hospital Transfer - Req. Specs Out of Hospital Transfer - Requested Specifics: Other Emergency Center ([facility])
[2023-11-13 16:23] LABS: ALT 723 U/L (4-34); AST 696 U/L (14-36); African American GFR (CKD) >90 (>60 ml/min/1.73 sqM); Albumin 4.8 g/dL (3.5-5.0); Alkaline Phosphatase 473 U/L (38-126); Anion Gap 10 mmol/L; Basophils % (A) 0 %; Blood Urea Nitrogen 12 mg/dL (7-17); Calcium 9.4 mg/dL (8.4-10.2); Carbon Dioxide 21 mmol/L (22-30); Chloride 109 mmol/L (98-107); Eosinophils % (A) 0 %; Glucose 123 mg/dL (74-99); HCT 44.2 % (34.0-46.0); HGB 14.5 gm/dL (11.4-16.0); Lipase 63 U/L (23-300); Lymphocytes # (A) 0.4 k/uL (1.0-4.8); Lymphocytes % (A) 4 %; MCH 32.5 pg (25.0-35.0); MCHC 32.8 g/dL (31.0-37.0); MCV 99.1 fL (80.0-100.0); Mean Platelet Volume 7.6; Monocytes # (A) 0.4 k/uL (0-1.0); Monocytes % (A) 3 %; Neutrophils # (A) 10.8 k/uL (1.3-7.7); Neutrophils % (A) 92 %; Non-African American GFR(CKD) >90 (>60 ml/min/1.73 sqM); Platelet Count 183 k/uL (150-450); Potassium 4.4 mmol/L (3.5-5.1); RBC 4.46 m/uL (3.80-5.40); RDW 12.8 % (11.5-15.5); Sodium 140 mmol/L (137-145); Total Bilirubin 5.5 mg/dL (0.2-1.3); Total Protein 7.8 g/dL (6.3-8.2); WBC 11.7 k/uL (3.8-10.6)
--- NOTE | 2023-11-13 17:12 | CT ---
EXAMINATION TYPE: CT abdomen pelvis w con DATE OF EXAM: 11/13/2023 HISTORY: ruq pain CT DLP: 564.3mGycm Automated Exposure Control for Dose Reduction was Utilized. CONTRAST: CT scan of the abdomen and pelvis is performed with IV Contrast, patient injected with 100 ml mL of Isovue 300. COMPARISON: CT 05/26/2019 FINDINGS: LUNG BASES: No acute process. HEPATOBILIARY/PANCREAS: There is moderate intrahepatic and extrahepatic ductal dilation down to the d istalmost CBD; these findings are new since 05/26/2019. Gallbladder is mildly distended but has normal morphology and no pericholecystic abnormalities. There is no distal CBD focal lesion, and no pancrea tic ductal dilation or focal pancreatic parenchymal lesion. There is no CT evidence of cholelithiasis or choledocholithiasis. There are no focal liver lesions. The hepatic and portal venous systems are widely patent. BOWEL: The gastric antrum, pylorus, and D1show circumferential low attenuation consistent with circu mferential mural thickening versus peristalsis at the moment of CT imaging (axial sequence images 24- 28). There are no dilated small or large bowel loops. Appendix is negative. Colonic stool volume is w ithin normal limits. PERITONEAL CAVITY: No fluid or pneumoperitoneum. SPLEEN: No splenomegaly or focal findings, but prominent lienorenal varices are noted. ADRENALS: No nodules. KIDNEYS: No significant abnormality is seen. UTERUS/ADNEXA: Uterus is retroverted pointing left of midline, and is not enlarged. LYMPH NODES: No greater than 10 mm short axis abdominal or pelvic lymph nodes. VASCULATURE: No acute vascular process. No abdominal aortic aneurysm. OSSEOUS STRUCTURES: No focal aggressive abnormality is seen. IMPRESSION: 1. Moderate extrahepatic/intrahepatic biliary tree dilation down to the distalmost CBD with etiology unclear. 2. Circumferential distal gastric circumferential hypodense mural thickening.
[2023-11-13 20:15] VITALS: BP 123/74; PULSE 68
== END 2023-11-13 20:27 | disposition other institution (70) ==
LOC: EC 15:08
DX: K83.1 Obstruction of bile duct (principal); Z88.8 Allergy status to other drugs, medicaments and biological substances
CPT/HCPCS: 36415; 93005; 80053; 83690; 85025; 74177; 99285; Q9967

== ENCOUNTER → 2024-11-01 | Outpatient (CLI) | payer MEDICARE ==
--- NOTE | 2024-11-01 17:26 | BD ---
EXAMINATION TYPE: Axial Bone Density DATE OF EXAM: 11/01/2024 CLINICAL HISTORY: 69 years old Female. ICD-10 CODE: M81.0 OSTEOPOROSIS , Additional History: Height: 60 Weight: 131.0 FRAX RISK QUESTIONS: Alcohol (3 or more units per day): no Family History (Parent hip fracture): no Glucocorticoids (More than 3mos): no (Ex: prednisone, prednisolone, methylprednisolone, dexamethasone, and hydrocortisone). History of Fracture in Adulthood: no Secondary Osteoporosis: 1. Type 1 Diabetes: no 2. Hyperthyroidism: no 3. Menopause before 45: no 4. Malnutrition: no 5. Chronic liver disease: no Rheumatoid Arthritis: no Current Tobacco Use: no RISK FACTORS HISTORY OF: Hip Fracture (Right/Left): no Spine Fracture: no History of Wrist Fracture: no Surgery to Spine/Hip(right/left)/Wrist (right/left): no MEDICATIONS: Thyroid Medications: no Osteoporosis Medications: no EXAM MEASUREMENTS: Bone mineral densitometry was performed using the [employer] System. Bone mineral density as measured about the Lumbar spine is: ----- L1-L4(G/cm2): 0.795 T Score Values are as follows: ----- L1: -2.7 ----- L2: -3.6 ----- L3: -3.2 ----- L4: -3.3 ----- L1-L4: -3.2 Z Score Values are as follows: ----- L1: -0.9 ----- L2: -1.8 ----- L3: -1.4 ----- L4: -1.5 ----- L1-L4: -1.4 Bone mineral density has: decreased -4.4 % since study of: 10/30/2022 Bone mineral density about the R hip (g/cm2): 0.916 Bone mineral density about the L hip (g/cm2): 0.878 T Score values are as follows: -----R Neck: -1.3 -----L Neck: -1.6 -----R Total: -0.7 -----L Total: -1.0 Z Score values are as follows: -----R Neck: 0.5 -----L Neck: 0.2 -----R Total: 0.8 -----L Total: 0.5 Bone mineral density has: increased 0.7 % since study of: 10/30/2022 FRAX%s: The graph provided illustrates a 10.0chance for a major osteoporotic fx and a 1.5chance for t he hips probability for fx in 10 years time. IMPRESSION: Osteoporosis (T Score less than -2.5). There is increased fracture risk and therapy is usually indicated based on age. Re-Screen 1-2 years. NOTE: T-SCORE=SD OF THE YOUNG ADULT MEAN. [facility], , 11/01/2024 5:24 PM
--- NOTE | 2024-11-01 18:16 | MM ---
Reason for Exam: Screening (asymptomatic). Last mammogram was performed 6 year(s) and 5 month(s) ago. Patient History: Menarche at age 13. First Full-Term at age 24. Postmenopausal. Patient has history of breast feeding. Patient used Hormonal Contraceptives for 7 years. Maternal aunt had breast cancer. Risk Values: Lavonne 5 year model risk: 1.5%. NCI Lifetime model risk: 4.8%. Prior Study Comparison: 12/05/2014 Bilateral Screening Mammogram, [facility]. 06/18/2018 Bilateral Screening Mammogram, [facility]. 07/08/2018 Left Diagnostic Mammogram, [facility]. Tissue Density: The breasts are heterogeneously dense, which may obscure small masses. Findings: Analyzed By CAD. New tiny 4 mm isodense nodule centrally in the right breast. This appears circumscribed and may represent the development of a tiny cyst. Recommend 6 month follow-up to reassess. Other chronic nodularity upper outer quadrant right breast. A couple of benign gliosis calcifications on both sides. Otherwise, no significant change. Overall Assessment: Probably benign, BI-RAD 3 Management: Diagnostic Mammogram of the right breast in 6 months. Patient should continue monthly self-breast exams. A clinical breast exam by your physician is recommended on an annual basis. This exam should not preclude additional follow-up of suspicious palpable abnormalities. Note on Lavonne scores and lifetime risk: 1. A Lavonne score greater than 3% is considered moderate risk. If this is the case, consider specialist referral to assess eligibility for a risk reducing agent. 2. If overall lifetime risk for the development of breast cancer is 20% or higher, the patient may qualify for future screening with alternating mammogram and breast MRI. [facility], , 11/01/2024 6:14 PM. Electronically signed and approved by: Nabor Mccartney M.D. Radiologist
== END | disposition home or self-care (01) ==
LOC: RADMAMWWP 13:44
PROVIDERS: ATTEND Family Medicine
DX: Z12.31 Encounter for screening mammogram for malignant neoplasm of breast (principal); R92.333 Mammographic heterogeneous density, bilateral breasts; M81.0 Age-related osteoporosis without current pathological fracture; M85.89 Other specified disorders of bone density and structure, multiple sites; Z78.0 Asymptomatic menopausal state; Z80.3 Family history of malignant neoplasm of breast; Z92.0 Personal history of contraception
CPT/HCPCS: 77063; 77067; 77080